=== PATIENT | male | born 1935 | race Caucasian/White ===

== ENCOUNTER 2019-10-31 03:21 | Observation (INO) | payer MEDICARE, BC ==
[~2019-10-31] VITALS: Ht 170.2 cm; Wt 99.3 kg
[2019-10-31 03:42] VITALS: BP 154/66
[2019-10-31 04:12] LABS: ABSOLUTE BASOPHILS 0.1 thou/uL (0.0-0.2); ABSOLUTE EOSINOPHILS 0.2 thou/uL (0.0-0.7); ABSOLUTE LYMPHOCYTES 2.8 thou/uL (0.8-5.3); ABSOLUTE MONOCYTES 0.9 thou/uL (0.0-1.2); ABSOLUTE NEUTROPHILS 8.7 thou/uL (1.6-8.1); BASOPHILS 0.8 %; EOSINOPHILS 1.3 %; HEMATOCRIT 36.2 % (42.0-52.0); HEMOGLOBIN 11.9 gm/dL (14.0-18.0); LYMPHOCYTES 22.2 %; MCH 27.6 pg (26.0-34.0); MCV 83.7 fL (80.0-100.0); MONOCYTES 7.4 %; MPV 8.5 fl. (7.2-11.1); NUCLEATED RBCS 0 /100WBC; PLATELET COUNT* 226 thou/uL (150-400); POLYS 68.3 %; RBC 4.33 mil/uL (4.50-6.00); RDW-CV 15.8 % (10.5-14.5); WBC 12.7 thou/uL (4.0-11.0)
[2019-10-31] MEDS ORDERED: DULERA 200 MCG/13 GM INH (04:24)
[2019-10-31] MEDS ORDERED: EFFER-K 10 MEQ10 ME1 PO (04:24)
[2019-10-31] MEDS ORDERED: TOPROL XL50 MG PO (04:24)
[2019-10-31] MEDS ORDERED: SINGULAIR 10 MG10 M1 PO (04:24)
[2019-10-31] MEDS ORDERED: PROAIR RESPICL90 MCG INH (04:25)
[2019-10-31] MEDS ORDERED: COZAAR 25 MG TA25 M1 PO (04:25)
[2019-10-31] MEDS ORDERED: ALBUTEROL2.5 MG/3 M INH (04:25)
[2019-10-31] MEDS ORDERED: LANTUS SUBQ (04:26)
[2019-10-31] MEDS ORDERED: REQUIP 1 MG TABL1 M1 PO (04:26)
[2019-10-31] MEDS ORDERED: OXYGEN MISCELL (04:26)
[2019-10-31 04:27] LABS: CALCIUM 8.1 mg/dL (8.5-10.1); CREATININE 1.9 mg/dL (0.6-1.3); POTASSIUM 3.8 mmol/L (3.5-5.1)
[2019-10-31] MEDS ORDERED: MEDROL4 MG PO (04:27)
[2019-10-31] MEDS ORDERED: ELIQUIS2.5 MG PO (04:27)
[2019-10-31] MEDS ORDERED: BACLOFEN 10MG T10 MG PO ×3 (04:27→08:35)
[2019-10-31] MEDS ORDERED: PRILOSEC OTC20 MG PO (04:28)
[2019-10-31 04:30] LABS: APTT 30.6 Seconds (25.0-31.3); INR 1.1; PROTIME 11.1 Seconds (9.20-11.50)
[2019-10-31 04:31] LABS: ALBUMIN 3.4 g/dL (3.4-5.0); MAGNESIUM 2.4 mg/dL (1.8-2.4); TOTAL BILIRUBIN 0.8 mg/dL (<0.1-1.0); TOTAL PROTEIN 6.3 g/dL (6.4-8.2)
[2019-10-31 04:57] LABS: URINE BILIRUBIN NEGATIVE (Negative); URINE BLOOD TRACE (Negative); URINE CLARITY CLEAR; URINE COLOR YELLOW; URINE GLUCOSE-RANDOM NEGATIVE (Negative); URINE KETONES NEGATIVE (Negative); URINE LEUKOCYTES-REFLEX NEGATIVE (Negative); URINE NITRITE-REFLEX NEGATIVE (Negative); URINE PROTEIN NEGATIVE (Negative); URINE SPECIFIC GRAVITY 1.025 (1.005-1.030); URINE UROBILINOGEN 0.2 E.U./dl (0.2-1.0)
[2019-10-31 05:46] VITALS: BP 123/60
[2019-10-31 06:30] VITALS: BP 161/66
[2019-10-31 08:00] VITALS: BP 163/64
[2019-10-31] MEDS ORDERED: LANOXIN125 MCG PO (08:45)
[2019-10-31] MEDS ORDERED: TAMSULOSIN HCL0.4 MG PO (08:47)
[2019-10-31] MEDS ORDERED: TORSEMIDE5 MG PO (08:47)
[2019-10-31] MEDS ORDERED: ROSUVASTATIN CA10 MG PO (08:48)
[2019-10-31] MEDS ORDERED: PROSCAR 5MG TABL5 M1 PO (08:49)
[2019-10-31] MEDS ORDERED: ADULT LOW DOSE81 MG PO (11:49)
[2019-10-31 12:29] VITALS: BP 118/38
[2019-10-31 13:36] VITALS: BP 118/38
--- NOTE | 2019-10-31 13:57 | NUR ---
ORDER RECEIVED TO DISHCARGE PATIENT HOME WITH HOME HEALTH, ESTELLE AND REFUSED HOME HEALTH SERVICES STATING THAT THEY WERE FINE AT HOME. MED REC, MEDICATION EDUCATION, STROKE EDUATION, AND NEED FOR FOLLOW UP APPOINTMENTS COVERED WITH DAVID AND STATED UNDERSTOOD. IV AND TELEMTRY PACK REOMVED. ESTELLE TAKEN VIA WHEELCHIR TO AWAITING CAR WITH WIFDE PRESENT. HOURLY ROUNDING COMPLETD FOR PATIENT SAFETY. DC TIME OF 14:30.
[2019-11-01 05:52] LABS: GLYCOHEMOGLOBIN (HGB A1C) 6.5 % (4.8-5.6)
--- NOTE | 2019-11-01 13:58 | EKG ---
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
== END 2019-10-31 14:21 | disposition home or self-care (01) ==
LOC: M.ERS 03:21 → M.2W 05:05 → M.TBA-ER 05:05 → M.2W 06:26
PROVIDERS: Internal Medicine; Personal Emergency Response Attendant; ADMIT Internal Medicine; ATTEND Internal Medicine
DX: R41.82 Altered mental status, unspecified (principal); G93.40 Encephalopathy, unspecified; I48.91 Unspecified atrial fibrillation; J44.9 Chronic obstructive pulmonary disease, unspecified; M19.90 Unspecified osteoarthritis, unspecified site; E11.22 Type 2 diabetes mellitus with diabetic chronic kidney disease; N18.9 Chronic kidney disease, unspecified; Z79.01 Long term (current) use of anticoagulants; Z79.4 Long term (current) use of insulin; Z79.899 Other long term (current) drug therapy; Z20.828 Contact with and (suspected) exposure to other viral communicable diseases